=== PATIENT | male | born 1985 ===

== ENCOUNTER 2022-12-31 13:34 | Outpatient (REF) | payer MEDICARE, MEDICAID, SELFPAY | END 2022-12-31 13:35 | disposition home or self-care (01) | LOC: HO.SH 13:34 | PROVIDERS: Visit Provider Internal Medicine | DX: Z01.118 Encounter for examination of ears and hearing with other abnormal findings (principal); H93.293 Other abnormal auditory perceptions, bilateral | CPT/HCPCS: 92555; 92567; 92579; 92588 ==